=== PATIENT | female | born 1955 ===

== ENCOUNTER 2018-09-08 08:47 | Outpatient (CLI) | payer OTHER ==
[~2018-09-08] VITALS: Ht 154.9 cm; Wt 68.9 kg
== END 2018-09-08 09:00 | disposition home or self-care (01) ==
LOC: OFIC 805 08:47
DX: H93.8X3 Other specified disorders of ear, bilateral (principal); R42 Dizziness and giddiness

== ENCOUNTER 2018-11-28 10:30 | Inpatient (IN) | payer BC ==
[~2018-11-28] VITALS: Ht 154.9 cm; Wt 72.6 kg
[2018-11-28] MEDS ORDERED: TRAMADOL HCL50 MG PO (11:08)
[2018-11-28] MEDS ORDERED: TOPROL XL50 M1 PO (11:08)
[2018-11-28] MEDS ORDERED: NORVASC5 MG PO (11:09)
[2018-11-28] MEDS ORDERED: ACTEMRA162 MG/0.9 SUBCUTANEO (11:10)
--- NOTE | 2018-11-28 11:10 | NUR ---
PT REFIERE SENTIR DOLOR Y DEBILIDAD EN TODO EL CUERPO DESDE LA TARDE DE EDDIE. REFIERE DOLOR NO COLLINS DISMINUIDO LUEGO DE AJAY TRAMADOL EN LA MANANA DE HOY .
--- NOTE | 2018-11-28 16:32 | NUR ---
PACIENTE ALERTA,ACTIVA Y ORIENTADA.SE ORIENTA DE TRATAMEINTO KEIRA ORDEN MEDICA SE ENTREGA ENVASE PARA U/C EL CUAL ENTREGA,SE CANALIZA Y SE ADMINISTRAN MEDICA- MENTOS KEIRA ORDEN MEDICA CON MEDIDAS ASEPTICAS CORRESPONDIENTES.
[2018-12-05] MEDS ORDERED: AMLODIPINE BESY10 MG PO (10:27)
[2018-12-05] MEDS ORDERED: Lantus 1000 UNITS/10 SUBCUTANEO (10:27)
[2018-12-05] MEDS ORDERED: CARdura 4MG TABLET PO (10:27)
[2018-12-05] MEDS ORDERED: ALPRAZOLAM0.25 MG PO (10:27)
[2018-12-05] MEDS ORDERED: LOSARTAN POTAS100 MG PO (10:27)
[2018-12-05] MEDS ORDERED: SIMVASTATIN20 MG PO (10:27)
[2018-12-05] MEDS ORDERED: HumaLOG 100 UNIT/1 M SUBCUTANEO (10:27)
[2018-12-05] MEDS ORDERED: CIPRO500 MG PO (10:27)
[2018-12-05] MEDS ORDERED: TOPROL XL50 M1 PO (10:27)
== END 2018-12-05 11:00 | disposition home or self-care (01) | DRG 690 ==
LOC: ER 10:30 → MEDJ 21:39
PROVIDERS: ADMIT Internal Medicine
PROC: BT43ZZZ Ultrasonography of Bilateral Kidneys (ICD-10-PCS; principal; 2018-11-28)
PROC: B246ZZZ Ultrasonography of Right and Left Heart (ICD-10-PCS; 2018-11-30)
DX: N39.0 Urinary tract infection, site not specified (principal); N17.8 Other acute kidney failure; B96.29 Other Escherichia coli [E. coli] as the cause of diseases classified elsewhere; M06.89 Other specified rheumatoid arthritis, multiple sites; I13.10 Hypertensive heart and chronic kidney disease without heart failure, with stage 1 through stage 4 chronic kidney disease, or unspecified chronic kidney disease; N18.9 Chronic kidney disease, unspecified; I25.10 Atherosclerotic heart disease of native coronary artery without angina pectoris; E11.65 Type 2 diabetes mellitus with hyperglycemia